=== PATIENT | male | born 1945 | race Caucasian/White ===

== ENCOUNTER → 2017-05-24 | Outpatient (CLI) | payer OTHER ==
[~2017-05-24] MED LIST: GADOBUTROL 10 ML VIAL IVP ONE
[2017-05-24 08:30] LABS: CREATININE 0.9 mg/dL (0.7-1.3); GLOMERULAR FILTRATION RATE > 60
== END ==
LOC: FIMAGING 07:44
PROVIDERS: ATTEND Neurological Surgery
DX: M48.06 Spinal stenosis, lumbar region (principal); M12.88 Other specific arthropathies, not elsewhere classified, other specified site; M51.36 Other intervertebral disc degeneration, lumbar region; M43.16 Spondylolisthesis, lumbar region; N50.819 Testicular pain, unspecified; M71.30 Other bursal cyst, unspecified site
CPT/HCPCS: 72158; A9585